=== PATIENT | female | born 1950 ===

== ENCOUNTER 2023-04-15 09:30 | Day surgery (SDC) | payer MEDICARE, OTHER ==
[~2023-04-15 09:30] MED LIST: Lactated Ringers 1,000 ML IV SCH; Sodium Chloride 0.9% 10 ML Syringe FLUSH PRN; Sodium Chloride 0.9% 10 ML Syringe FLUSH SCH
[2023-04-15] MEDS ORDERED: Lidocaine 1% 10 ML MDV ONE (11:05)
[2023-04-15] MEDS ORDERED: Bupivacaine 0.5% 30 ML SDV ONE (11:05)
[2023-04-15] MEDS ORDERED: Propofol 200 MG/20 ML SDV ONE (11:47)
[2023-04-15] MEDS ORDERED: Midazolam 1 MG/ML 2 ML SDV ONE (11:47)
[2023-04-15] MEDS ORDERED: fentaNYL 100 MCG/2 ML SDV ONE (11:47)
[2023-04-15] MEDS ORDERED: Dexamethasone 4 MG/ML 5 ML MDV ONE (11:49)
[2023-04-15] MEDS ORDERED: Lidocaine 2% 5 ML SDV ONE (11:49)
[2023-04-15] MEDS ORDERED: Ondansetron 4 MG/2 ML SDV IVPUSH PRN (12:03)
[2023-04-15] MEDS ORDERED: HYDROmorphone 0.5 MG/0.5 ML Syringe IVPUSH PRN (12:03)
[2023-04-15] MEDS ORDERED: fentaNYL 100 MCG/2 ML SDV IVPUSH PRN (12:03)
== END 2023-04-15 16:45 | disposition home or self-care (01) ==
LOC: JD.SDS 09:30
PROVIDERS: ATTEND Podiatrist Foot & Ankle Surgery
DX: M20.22 Hallux rigidus, left foot (principal); M20.42 Other hammer toe(s) (acquired), left foot; S93.145A Subluxation of metatarsophalangeal joint of left lesser toe(s), initial encounter; S93.135A Subluxation of interphalangeal joint of left lesser toe(s), initial encounter; E66.9 Obesity, unspecified; J32.9 Chronic sinusitis, unspecified; F41.9 Anxiety disorder, unspecified; J40 Bronchitis, not specified as acute or chronic; Z68.41 Body mass index [BMI] 40.0-44.9, adult; Z79.899 Other long term (current) drug therapy; Z88.2 Allergy status to sulfonamides; Z88.0 Allergy status to penicillin
CPT/HCPCS: 28291; 28295; 76000; J0665; J1100; J2250; J2704; J3010; J3490; J7120; C1713